=== PATIENT | male | born 2000 | race Caucasian/White ===

== ENCOUNTER 2021-09-16 15:39 | Inpatient (IN) | payer SELFPAY ==
[~2021-09-16] VITALS: Ht 175.3 cm; Wt 66.7 kg
--- NOTE | 2021-09-16 16:05 | NUR ---
BIBMOM C/O WEAKNESS & FATIGUE, ON GOING PROBLEM SINCE MAR, REFUSED TO SEE MED UNTIL TODAY. DENIES ABDOMINAL PAIN, N/V/D AND BLEEDING. PLACED COMFORTABLY IN BED. VITALS CHECKED.
[2021-09-16] MEDS ORDERED: IV NS 0.9% 1,000 ML BAG IV ONE (16:30)
[2021-09-16] MEDS ORDERED: PANTOPRAZOLE 40 MG VIAL IV ONE (16:30)
--- NOTE | 2021-09-16 16:30 | NUR ---
IV CANNULA G18 INSERTED ON RIGHT AC. BLOOD DRAWN AND SENT TO LAB
[2021-09-16] MEDS ORDERED: PANTOPRAZOLE 40 MG VIAL ONE (16:32)
--- NOTE | 2021-09-16 16:37 | NUR ---
MEDICATED PER ERMD ORDER, PT SHERRON WELL. PT TO CT VIA TEDDY.
--- NOTE | 2021-09-16 16:40 | NUR ---
WHEELED PATIENT TO CT DEPT
[2021-09-16 17:16] LABS: CALCIUM, SERUM 8.5 mg/dL (8.5-10.1); CREATININE 0.6 mg/dL (0.6-1.3); POTASSIUM 3.6 mmol/L (3.5-5.1)
[2021-09-16 17:28] LABS: ALBUMIN 3.1 g/dL (3.4-5.0); BILIRUBIN,DIRECT 0.1 mg/dL (0.0-0.2); BILIRUBIN,TOTAL 0.2 mg/dL (0.2-1.0); TOTAL PROTEIN, SERUM 8.2 g/dL (6.4-8.2)
--- NOTE | 2021-09-16 17:46 | NUR ---
BLOOD DRAWN DONE AND SENT TO LAB
--- NOTE | 2021-09-16 18:25 | NUR ---
PATIENT FOR BLOOD TRANSFUSION OF 2 UNITS. 1 UNIT PREPARED TO TRANSFUSE. BLOOD CHECKED AND VERIFIED WITH RN SABINE. VITALS WITHIN NORMAL RANGE. PATIENT AFEBRILE. ATTACHED TO MONITOR. BP 117/78, HR113,T98.3, RR19, SPO2 100%.
--- NOTE | 2021-09-16 18:46 | NUR ---
COVID SWAB DONE AND SENT TO LAB
--- NOTE | 2021-09-16 19:30 | NUR ---
MRSA SWAB COLLECTED AND SENT TO LAB. PATIENT'S BELONGINGS LIST DONE.
--- NOTE | 2021-09-16 20:25 | NUR ---
CALLED CAROL LARES WILL CALL BACK FOR REPORT
--- NOTE | 2021-09-16 20:50 | NUR ---
CALLED CAROL LARES STILL NOT READY TO RECEIVE REPORT
--- NOTE | 2021-09-16 21:06 | NUR ---
REPORT GIVEN TO CAROL ROMERO
--- NOTE | 2021-09-16 21:20 | NUR ---
RN NOTE RECEIVED PATIENT FROM ER, TRANSFERRED TO ROOM 111-1. ADMITTING DX: ACUTE GIB. PATIENT IS ALERT AND ORIENTED X4, ABLE TO MAKE NEEDS KNOWN. VERBALIZED FEAR AND WORRISOME. KEPT PATIENT COMFORTABLE AND ANSWERED PATIENT'S QUESTIONS ACCORDINGLY. ON ROOM AIR, O2 SAT 100%. NO S/S OF ACUTE RESPIRATORY DISTRESS. DENIES ANY PAIN AT THIS TIME. IV ACCESS ON RIGHT AC #18, PATENT AND INTACT. S/P 1 UNIT PRBC. VITAL SIGNS STABLE. DUE FOR ANOTHER UNIT OF PRBC. SKIN ASSESSMENT DONE, SKIN IS INTACT AND CLEAN. SKIN IS PALE. ABLE TO AMBULATE, STANDBY ASSIST. NO S/S OF ANY NAUSEA/VOMITING AT THIS TIME. ORIENTED PATIENT TO ROOM, STAFF, AND USE OF CALL LIGHT. BED LOCKED AND IN LOWEST POSITION. ALL NEEDS ANTICIPATED.
--- NOTE | 2021-09-16 21:32 | NUR ---
PUSHED PATIENT TO ARNAUD. ENDORSED TO HEATHER THAT BLOOD #2 IS READY FOR QA DEVELOPER AT LAB.
[2021-09-16] MEDS ORDERED: ONDANSETRON HCL/PF 4 MG/2 ML VIAL IVP PRN (22:00)
[2021-09-16] MEDS ORDERED: ACETAMINOPHEN 325 MG TABLET PO PRN (22:00)
[2021-09-16] MEDS ORDERED: ZOLPIDEM TARTRATE 5 MG TABLET PO PRN (22:00)
[2021-09-16] MEDS ORDERED: Z GUARD REMEDY 4 OZ OINT TP PRN (22:00)
[2021-09-16 22:05] VITALS: BP 119/73
[2021-09-16] MEDS: IV NS 0.9% 1,000 ML IV PRN (22:14)
[2021-09-16 22:20] VITALS: BP 111/73
[2021-09-16 22:35] VITALS: BP 113/76
[2021-09-16] MEDS: PANTOPRAZOLE 40 MG VIAL IV SCH (22:58)
[2021-09-16 23:35] VITALS: BP 114/74
[2021-09-17] VITALS (13 sets, daily range): BP systolic 111–123; BP diastolic 62–75
--- NOTE | 2021-09-17 00:43 | NUR ---
RN NOTE 2 UNIT PRBC TRANSFUSED AT THIS TIME. NO ADVERSE REACTION NOTED. VITAL SIGNS STABLE.
--- NOTE | 2021-09-17 02:41 | NUR ---
RN NOTE ALANA SOSA MADE AWARE, PATIENT'S REPEAT HGB/HCT - 5.0/16, S/P 2 UNITS PRBC. WITH NEW ORDER TO TRANSFUSE 2 UNITS PRBC. ALSO MADE ALANA SOSA AWARE NO KODY KATZ FOR EMERGENCY BLOOD TRANSFUSION. TEENA CELL FEED DEPARTMENT SUPERVISOR AND THEODORE CELL FEED DEPARTMENT SUPERVISOR AWARE.
--- NOTE | 2021-09-17 03:30 | NUR ---
RN NOTE BEGAN PATIENT'S 3RD UNIT PRBC(EMERGENCY BLOOD TRANSFUSION) AT THIS TIME. UNABLE TO SCAN. VERIFIED MANUALLY WITH TEENA MEDINA. EXPIRATION DATE CHECKED. NO SIGNS OF LEAKAGE, BLOOD CLOTS, OR DISCOLORATION. VITAL SIGNS BP- 113/67, HR 92, RR 20 TEMP- 98.2, O2 SAT 98%
--- NOTE | 2021-09-17 06:56 | NUR ---
RN NOTE 0345- NO ADVERSE REACTION NOTED. BP-102/66, HR 82, RR-18, TEMP 98.8, O2 SAT 99% 0359- PATIENT STABLE. BP-104/63, HR 86, TEMP 98.8, O2 SAT 99%, RR-17 0430- BP 106/62, HR 82, RR-16, TEMP 98.8, O2 SAT 99%. 0530- NO ADVERSE REACTION NOTED. BP 110/68, HR 84, RR-16, TEMP 98.7, O2 SAT 98% 0640- BLOOD TRANSFUSION COMPLETED, NO ADVERSE REACTION NOTED. BP 108/66, HR-80, RR-16, TEMP 98.9, O2 SAT 99% PATIENT RESTING IN BED. CONTINUES ON ROOM AIR, NO S/S OF RESPIRATORY DISTRESS. COMPLETED 2 UNITS PRBC SINCE ADMISSION, TOLERATED WELL. ASSISTED PATIENT TO BATHROOM X1. ALL NEEDS ATTENDED PROMPTLY. WILL ENDORSE TO AM SHIFT.
[2021-09-17 06:57] LABS: BASOPHILS # (AUTO) 0.1 K/uL (0.0-0.2); BASOPHILS % (AUTO) 2.1 % (0.0-2.0); EOSINOPHILS % (AUTO) 6.2 % (0.0-6.0); LYMPHOCYTES # (AUTO) 1.4 K/uL (0.8-4.8); LYMPHOCYTES % (AUTO) 21.9 % (20.0-44.0); MEAN CORPUSCULAR HGB CONC 32 g/dl (31.0-36.0); MEAN CORPUSCULAR VOLUME 69 fL (80-96); MONOCYTES # (AUTO) 1.2 K/uL (0.1-1.30); MONOCYTES % (AUTO) 17.9 % (2.0-12.0); NEUTROPHILS # (AUTO) 3.4 K/uL (1.8-8.9); NEUTROPHILS % (AUTO) 51.9 % (43.0-81.0); PLATELET COUNT (AUTO) 329 K/uL (150-450); RED BLOOD CELL COUNT(AUTO) 2.73 MIL/uL (4.5-6.0); WHITE BLOOD COUNT (AUTO) 6.5 K/uL (4.3-11.0)
[2021-09-17 07:04] LABS: HEMATOCRIT 19 % (39-51); HEMOGLOBIN 5.9 g/dL (13.5-17.5)
[2021-09-17 07:24] LABS: ALBUMIN 2.4 g/dL (3.4-5.0); BILIRUBIN,TOTAL 0.9 mg/dL (0.2-1.0); CALCIUM, SERUM 8.2 mg/dL (8.5-10.1); CREATININE 0.7 mg/dL (0.6-1.3); MAGNESIUM 2.3 mg/dL (1.8-2.4); PHOSPHORUS 4.4 mg/dL (2.5-4.9); TOTAL PROTEIN, SERUM 6.7 g/dL (6.4-8.2)
[2021-09-17 07:34] LABS: POTASSIUM 3.9 mmol/L (3.5-5.1)
--- NOTE | 2021-09-17 08:10 | NUR ---
4TH UNIT OF BLOOD STARED AT THIS TIME, PATENT A/O X4 WITH STABLE VS, AFEBRILE NO SOB/ACUTE DISTRESS NOTED, WILL CONTINUE TO MONITOR CLOSELY.
[2021-09-17 08:49] LABS: EOSINOPHILS % (MANUAL) 7 % (0-4); LYMPHOCYTES % (MANUAL) 26 % (16-48); MONOCYTES % (MANUAL) 13 % (0-11.0); NEUTROPHILS % (MANUAL) 54 (42-76)
[2021-09-17] MEDS: PANTOPRAZOLE 40 MG VIAL IV SCH ×2 (10:17→23:00)
[2021-09-17 12:35] LABS: HEMOGLOBIN 7.9 g/dL (13.5-17.5)
[2021-09-17 13:54] LABS: THYROID STIMULATING HORMONE 3.649 uIU/mL (0.358-3.74)
[2021-09-17] MEDS: IV NS 0.9% 1,000 ML IV PRN (18:05)
[2021-09-17 18:41] LABS: FERRITIN 9 ng/mL (8-388)
--- NOTE | 2021-09-17 18:51 | NUR ---
PATIENT NPO FOR CT CHEST/ABDOMEN/PELVIS WITH CONTRAST AT 1999, WILL BE NPO AFTER MIDNIGHT EXCEPT MEDS, FOR COLONOSCOPY AND EGD TOMORROW, WILL BE PREPARED WITH BRYON, PER DR LEDEZMA TAKE 3/4 OF THE GALON DURING THE NIGHT AND 1/4 IN AM, PATIENT AWARE AND AGREE, CONTINUE IN IVF ORDERED, WILL ENDORSE CONTINUITY OF CARE TO ONCOMING NURSE.
[2021-09-17] MEDS ORDERED: PEG 3350/NA SULF,BICARB,CL/KCL 4,000 ML BOTTLE PO ONE (20:00)
--- NOTE | 2021-09-17 23:27 | NUR ---
ARNAUD/RN AT INITIAL SHIFT ROUND AT 1920, PATIENT WAS IN BED TALKING TO FAMILY MEMBERS. PATIENT WAS AWAKE, ALERT, ORIENTED, NO C/O PAIN, NO DISTRESS NOTED, PLAN OF CARE DISCUSSED RE: COLONOSCOPY IN THE MORNING AND THE BOWEL PREP TONIGHT, PATIENT VERBALISED UNDERSTAND AND AGREEMENT TO THE PLAN OF CARE. NEEDS ATTENDED. WILL MONITOR.
--- NOTE | 2021-09-17 23:30 | NUR ---
ARNAUD/RN BOWEL PREP OF GOLYTELY WAS STARTED AT ABOUT 1999.
[2021-09-18] VITALS (10 sets, daily range): BP systolic 109–130; BP diastolic 61–85
[2021-09-18 06:22] LABS: BASOPHILS # (AUTO) 0.2 K/uL (0.0-0.2); BASOPHILS % (AUTO) 1.8 % (0.0-2.0); HEMATOCRIT 22 % (39-51); LYMPHOCYTES # (AUTO) 1.1 K/uL (0.8-4.8); LYMPHOCYTES % (AUTO) 13.3 % (20.0-44.0); MEAN CORPUSCULAR HGB CONC 32 g/dl (31.0-36.0); MEAN CORPUSCULAR VOLUME 69 fL (80-96); MONOCYTES # (AUTO) 1.8 K/uL (0.1-1.30); MONOCYTES % (AUTO) 20.4 % (2.0-12.0); NEUTROPHILS # (AUTO) 5.2 K/uL (1.8-8.9); NEUTROPHILS % (AUTO) 59.5 % (43.0-81.0); PLATELET COUNT (AUTO) 329 K/uL (150-450); RED BLOOD CELL COUNT(AUTO) 3.18 MIL/uL (4.5-6.0); WHITE BLOOD COUNT (AUTO) 8.7 K/uL (4.3-11.0)
[2021-09-18 07:04] LABS: HEMOGLOBIN 6.9 g/dL (13.5-17.5)
[2021-09-18 07:06] LABS: CALCIUM, SERUM 8.4 mg/dL (8.5-10.1); CREATININE 0.7 mg/dL (0.6-1.3); MAGNESIUM 2.1 mg/dL (1.8-2.4); PHOSPHORUS 3.9 mg/dL (2.5-4.9); POTASSIUM 3.2 mmol/L (3.5-5.1)
[2021-09-18 07:07] LABS: IMMUNOGLOBULIN A, SERUM 5 mg/dL (90-386); IMMUNOGLOBULIN G, SERUM 2011 mg/dL (603-1613); IMMUNOGLOBULIN M, SERUM 198 mg/dL (20-172)
--- NOTE | 2021-09-18 07:34 | NUR ---
ARNAUD/RN HG 6.9, NOTIFIED SYDNEE BENNETT NP, VIA SECURED MESSAGING, NO REPLY. ENDORSED CAROL ARNOLD, DAY SHIFT NURSE.
[2021-09-18 07:45] LABS: C-REACTIVE PROTEIN 0.8 mg/dL (0.0-0.9)
[2021-09-18] MEDS: IV NS 0.9% 1,000 ML IV PRN (07:48)
[2021-09-18] MEDS ORDERED: IV NS 0.9% 250 ML IV ONE (07:50)
[2021-09-18] MEDS ORDERED: IOHEXOL-300 100 ML VIAL IV ONE (07:50)
[2021-09-18] MEDS ORDERED: CT SWABBABLE VALVE TRANS SET 1 EA INFUS.SET MC ONE (07:51)
--- NOTE | 2021-09-18 07:55 | NUR ---
MS RN OPENING NOTE Patient in bed, awake. A/O x 4, able to make needs known. On room air, breathing evenly and unlabored. No SOB or s/s of distress noted. IV access on RAC #18 running NS at 75 ml/hr. NPO except meds for procedure at noon. Safety precautions in place: bed in low, locked position; siderails up x 2; naty light within reach. Will continue to monitor.
[2021-09-18] MEDS: PANTOPRAZOLE 40 MG VIAL IV SCH ×2 (08:54→21:25)
--- NOTE | 2021-09-18 09:00 | NUR ---
RN NOTE Patient's Hgb is 6.9, Ayden Brock NP notified and ordered to transfuse 1 unit of PRBC.
[2021-09-18] MEDS ORDERED: SORBITOL SOLUTION 70% 30 ML SOLUTION MC STA (09:14)
--- NOTE | 2021-09-18 09:50 | NUR ---
RN NOTE Started blood transfusion. Verified by 2 RNs. VS before transfusion as follows: BP 117/64, HR 79, RR 18, Temp 97.7. No signs of hemolytic reactions noted. Will continue to monitor.
[2021-09-18] MEDS ORDERED: SORBITOL SOLUTION 70% 30 ML SOLUTION PO STA ×2 (09:52→10:07)
--- NOTE | 2021-09-18 10:35 | NUR ---
RN NOTE No transfusion reactions noted at this time. VS as follows: BP 118/66, VA 89, RR 19, Temp 98.9. Will continue to monitor.
[2021-09-18 12:07] LABS: *SPE A/G RATIO 0.6 (0.7-1.7); *SPE ALPHA-1-GLOBULIN 0.4 g/dL (0.0-0.4); *SPE ALPHA-2-GLOBULIN 0.9 g/dL (0.4-1.0); *SPE BETA GLOBULIN 1.1 g/dL (0.7-1.3); *SPE M-SPIKE Not Observed g/dL (Not Observed)
[2021-09-18 12:36] LABS: OCCULT BLOOD STOOL POSITIVE (NEGATIVE)
--- NOTE | 2021-09-18 13:50 | NUR ---
RN NOTE Blood transfusion ended, tolerated well. VS as follows: BP 124/70, IL 94, RR 18, Temp 98.3.
[2021-09-18] MEDS ORDERED: POTASSIUM CL. PREMIX PERIPHER. 50 ML IV SCH (14:00)
--- NOTE | 2021-09-18 14:10 | NUR ---
RN NOTE Brought to OR for EGD and colonoscopy.
--- NOTE | 2021-09-18 16:19 | NUR ---
RN NOTE Patient brought back to room 111-1from OR. VS as follows: BP 112/73, IL 85, RR 19, SPO2 100 %, Temp 98.3. Will continue to monitor.
[2021-09-18 16:32] LABS: EOSINOPHILS % (MANUAL) 5 % (0-4); LYMPHOCYTES % (MANUAL) 15 % (16-48); MONOCYTES % (MANUAL) 20 % (0-11.0); NEUTROPHILS % (MANUAL) 60 (42-76)
[2021-09-18] MEDS: POTASSIUM CL. PREMIX PERIPHER. 50 ML IV SCH ×3 (16:50→19:00)
--- NOTE | 2021-09-18 19:05 | NUR ---
RN OPENING NOTES RECEIVED PATIENT ON BED, ALERT AND VERBALLY RESPONSIVE, A/O X 4. ON ROOM AIR. RESPIRATORY EVEN ANG UNLABORED, NO SOB NOTED. AFEBRILE. NO S/S OF DISTRESS NOTED. NOTED WITH RAC SL #18G, INTACT, PATENT. FLUSHED WITH NS, NO INFILTRATION NOTED AT SITE. RUNNING WITH NS 1L @ 75 ML/HR. NO ACTIVE BLEEDING NOTED AT THIS TIME. ALL SAFETY PRECAUTION PROVIDED. BED IN LOWEST POSITION, LOCKED. CALL LIGHT WITH IN REACH.
--- NOTE | 2021-09-18 19:27 | NUR ---
MS RN CLOSING NOTE Patient in bed, awake. A/O x 4, able to make needs known. Stable on room air, breathing evenly and unlabored. No SOB or s/s of distress noted. IV access on RAC #18 running NS at 75 ml/hr. Due meds given. All needs attended to. Safety precautions maintained: bed in low, locked position; siderails up x 2; naty light within reach. Will endorse to assistant shift supervisor nurse for NANDO.
[2021-09-18 20:22] LABS: HEMOGLOBIN 9.1 g/dL (13.5-17.5)
--- NOTE | 2021-09-18 20:45 | NUR ---
RN NOTES H AND H RESULT CAME IN, 9.1 AND 28, PATIENT NO ACTIVE BLEEDING NOTED. CONTINUE TO MONITOR. CHARGE NURSE MADE AWARE.
--- NOTE | 2021-09-18 23:00 | NUR ---
RN NOTES PATIENT NOTED WITH TEMP- 99.8 FAHRENHEIT, COOLING MEASURE PROVIDED, ACETAMINOPHEN GIVEN PER MD'S ORDER. CONTINUE TO MONITOR.
--- NOTE | 2021-09-18 23:30 | NUR ---
RN NOTES TEMPERATURE RECHECKED AND OBTAINED 99.3 FAHRENHEIT, CONTINUE WITH COOLING MEASURE. CONTINUE TO MONITOR
--- NOTE | 2021-09-19 00:30 | NUR ---
RN NOTES VANCOCIN ORAL SOLUTION 125mg, NOT AVAILABLE. NOTIFIED JOB SITE SUPERINTENDENT SYDNEE Craft, PER SYDNEE ITS OK TO START THE MEDICATION IN MORNING.
[2021-09-19 04:00] VITALS: BP 120/56
[2021-09-19] MEDS: IV NS 0.9% 1,000 ML IV PRN ×2 (05:02→18:44)
[2021-09-19 06:17] LABS: BASOPHILS # (AUTO) 0.1 K/uL (0.0-0.2); BASOPHILS % (AUTO) 1.7 % (0.0-2.0); EOSINOPHILS % (AUTO) 2.6 % (0.0-6.0); HEMATOCRIT 26 % (39-51); HEMOGLOBIN 8.6 g/dL (13.5-17.5); LYMPHOCYTES # (AUTO) 1.1 K/uL (0.8-4.8); LYMPHOCYTES % (AUTO) 16.4 % (20.0-44.0); MEAN CORPUSCULAR HGB CONC 33 g/dl (31.0-36.0); MEAN CORPUSCULAR VOLUME 73 fL (80-96); MONOCYTES # (AUTO) 1.3 K/uL (0.1-1.30); MONOCYTES % (AUTO) 19.6 % (2.0-12.0); NEUTROPHILS # (AUTO) 4.1 K/uL (1.8-8.9); NEUTROPHILS % (AUTO) 59.7 % (43.0-81.0); PLATELET COUNT (AUTO) 304 K/uL (150-450); RED BLOOD CELL COUNT(AUTO) 3.59 MIL/uL (4.5-6.0); WHITE BLOOD COUNT (AUTO) 6.9 K/uL (4.3-11.0)
[2021-09-19 06:23] LABS: CALCIUM, SERUM 8.2 mg/dL (8.5-10.1); CREATININE 0.8 mg/dL (0.6-1.3); PHOSPHORUS 4.8 mg/dL (2.5-4.9); POTASSIUM 3.4 mmol/L (3.5-5.1)
--- NOTE | 2021-09-19 07:19 | NUR ---
RN NOTES PATIENT REMAIN STABLE THROUGH OUT THE SHIFT. RESPIRATORY EVEN ANG UNLABORED, NO SOB NOTED. AFEBRILE. NO S/S OF DISTRESS NOTED. RUNNING WITH NS 1L @ 75 ML/HR. RECTAL BLEEDING, NO ACTIVE BLEEDING NOTED AT THIS TIME. ALL DUE MEDS GIVEN ORDERED. ALL SAFETY PRECAUTION PROVIDED. BED IN LOWEST POSITION, LOCKED. CALL LIGHT WITH IN REACH.
[2021-09-19] MEDS: VANCOMYCIN HCL 125 MG/2.5 ML ORAL.SUSP PO SCH ×5 (07:30→23:43)
--- NOTE | 2021-09-19 07:52 | NUR ---
RN OPENING NOTE PATIENT IN BED RESTING, AWAKE. A/O X 4. NO S/S OF PAIN NOTED AT THIS TIME. ON ROOM AIR, NO DISTRESS OR SHORTNESS OF BREATH NOTED. IV ACCESS RAC #18G INTACT, PATENT AND FLUSHING WELL. FALL AND SAFETY MEASURES IN PLACE, BED ALARM ON, BED IN LOW AND LOCK POSITION, CALL LIGHT AND TABLE WITHIN EASY REACH, SIDE RAILS UP X2. WILL CONTINUE TO MONITOR.
[2021-09-19 08:00] VITALS: BP 119/59
[2021-09-19] MEDS: PANTOPRAZOLE 40 MG VIAL IV SCH ×2 (08:24→21:10)
[2021-09-19] MEDS ORDERED: POTASSIUM CHLORIDE 20 MEQ TAB.PRT.SR PO SCH (10:00)
[2021-09-19 12:00] VITALS: BP 119/59
[2021-09-19 16:27] VITALS: BP 117/74
--- NOTE | 2021-09-19 18:31 | NUR ---
RN CLOSING NOTE PATIENT IN BED RESTING, AWAKE. A/O X 4. NO S/S OF PAIN NOTED AT THIS TIME. ON ROOM AIR, NO DISTRESS OR SHORTNESS OF BREATH NOTED. IV ACCESS RAC #18G - NS @ 75ML/HR, INTACT, PATENT AND FLUSHING WELL. ALL SCHEDULE MEDICATIONS ADMINISTERED. FALL AND SAFETY MEASURES IN PLACE, BED ALARM ON, BED IN LOW AND LOCK POSITION, CALL LIGHT AND TABLE WITHIN EASY REACH, SIDE RAILS UP X2. WILL ENDORSE TO PARACHUTE HARNESS RIGGER.
[2021-09-19 20:00] VITALS: BP 116/67
--- NOTE | 2021-09-19 20:00 | NUR ---
RN NOTE RECEIVED PT AWAKE, WITH FAMILY AT BEDSIDE. PT DENIES ANY PAIN, NO SOB NOTED. PT AMBULATORY. PT WITH LOOSE BOWEL, NO BLOOD PER PT. IV ON RAC PATENT AND INTACT, NS RUNNING AT 75ML/HR. WILL CONTINUE TO MONITOR.
[2021-09-20 04:00] VITALS: BP 110/66
[2021-09-20] MEDS: VANCOMYCIN HCL 125 MG/2.5 ML ORAL.SUSP PO SCH ×2 (05:57→11:56)
[2021-09-20 07:05] LABS: BASOPHILS # (AUTO) 0.1 K/uL (0.0-0.2); BASOPHILS % (AUTO) 1.2 % (0.0-2.0); EOSINOPHILS % (AUTO) 6.9 % (0.0-6.0); HEMATOCRIT 29 % (39-51); HEMOGLOBIN 9.2 g/dL (13.5-17.5); LYMPHOCYTES # (AUTO) 1.4 K/uL (0.8-4.8); LYMPHOCYTES % (AUTO) 23.4 % (20.0-44.0); MEAN CORPUSCULAR HGB CONC 32 g/dl (31.0-36.0); MEAN CORPUSCULAR VOLUME 73 fL (80-96); MONOCYTES # (AUTO) 0.9 K/uL (0.1-1.30); MONOCYTES % (AUTO) 15.9 % (2.0-12.0); NEUTROPHILS # (AUTO) 3.1 K/uL (1.8-8.9); NEUTROPHILS % (AUTO) 52.6 % (43.0-81.0); PLATELET COUNT (AUTO) 300 K/uL (150-450); RED BLOOD CELL COUNT(AUTO) 3.91 MIL/uL (4.5-6.0); WHITE BLOOD COUNT (AUTO) 5.9 K/uL (4.3-11.0)
--- NOTE | 2021-09-20 07:10 | NUR ---
RN NOTES RECEIVED PT ON BED ,A/x4, ON RA, NO DISTESS NOTED, IVF AT 75CC/HR RUNNING ,SR UP X3, CALL LIGHT WITHIN EASY REACH BED LOCKED AND IN LOWEST POSITON, CONTINUE TO MONITOR.
[2021-09-20 07:27] LABS: CALCIUM, SERUM 7.9 mg/dL (8.5-10.1); CREATININE 0.6 mg/dL (0.6-1.3); MAGNESIUM 1.9 mg/dL (1.8-2.4); PHOSPHORUS 4.2 mg/dL (2.5-4.9); POTASSIUM 3.6 mmol/L (3.5-5.1)
--- NOTE | 2021-09-20 07:27 | NUR ---
RN NOTE NO SIGNIFICANT CHANGES NOTED. REMAIN AFEBRILE. CONTINUE ON IVFLUIDS. NEW IV LINE ON LHAND. PATENT AND INTACT. DENIES ANY PAIN.
[2021-09-20 08:00] VITALS: BP 122/76
[2021-09-20 08:07] LABS: *ANA ANTI-CENTROMERE B AB <0.2 AI (0.0-0.9); *ANA ANTI-DNA(DS) AB, QN <1 IU/mL (0-9); *ANA ANTI-JO-1 <0.2 AI (0.0-0.9); *ANA ANTICHROMATIN ANTIBODY <0.2 AI (0.0-0.9); *ANA RNP ANTIBODIES <0.2 AI (0.0-0.9); *ANA SJOGREN'S ANTI-SS-A <0.2 AI (0.0-0.9); *ANA SJOGREN'S ANTI-SS-B <0.2 AI (0.0-0.9); *ANAANTI-SCLERODERMA-70 AB <0.2 AI (0.0-0.9); *ANASMITH AB <0.2 AI (0.0-0.9)
[2021-09-20] MEDS: PANTOPRAZOLE 40 MG VIAL IV SCH (08:13)
--- NOTE | 2021-09-20 12:00 | NUR ---
RN NOTES PT STABLE , NO DISTESS NOTED, CONTINUE TO MONITOR
[2021-09-20] MEDS: IV NS 0.9% 1,000 ML IV PRN (12:33)
[2021-09-20] MEDS ORDERED: AZITHROMYCIN 250 MG TABLET PO ONE ×2 (13:00→14:00)
[2021-09-20] MEDS ORDERED: METRONIDAZOLE 500 MG TABLET PO SCH (13:00)
[2021-09-20] MEDS ORDERED: LEVO500T90 PO (14:47)
[2021-09-20] MEDS ORDERED: METR500T PO (14:47)
[2021-09-20] MEDS ORDERED: LEVOFLOXACIN (250MG) 250 MG TABLET PO SCH (15:00)
[2021-09-20 16:00] VITALS: BP 120/68
--- NOTE | 2021-09-20 16:40 | NUR ---
RN NOTES DISCHARGE INSTRUCTION GIVEN , PT VERBALIZES UNDERSTANDING , IV SITE D/VICKY , PT LEFT THE FLOOR AMBULATORY TO MAIN ENTRANCE ACCOMPANIED BY FAMILY MEMBER AND STAFF MEMBER IN STABLE CONDITION .
[2021-09-20 17:05] LABS: FERRITIN 16 ng/mL (8-388)
[2021-09-20 17:44] LABS: IRON, SERUM 12 ug/dl (50-175); TOTAL IRON BINDING CAPACITY 360 ug/dl (250-450)
[2021-09-23 13:06] LABS: *ANCANTIMYELOPEROXIDASE (MPO) <9.0 U/mL (0.0-9.0); *ANCANTIPROTEINASE 3 (PR-3) AB 18.8 U/mL (0.0-3.5)
[2021-09-24 13:07] LABS: *ANCA CYTOPLASMIC (C-ANCA) <1:20 titer (Neg:<1:20); *ANCA PERINUCLEAR (P-ANCA) <1:20 titer (Neg:<1:20)
== END 2021-09-20 16:37 | disposition home or self-care (01) | DRG 385 ==
LOC: ER 15:41 → TRANSITION 18:59 → TELE1 20:01 → MEDSG1 09-18 07:05
PROVIDERS: ADMIT Nurse Practitioner Acute Care; ATTEND Nurse Practitioner Family
PROC: 30233N1 Transfusion of Nonautologous Red Blood Cells into Peripheral Vein, Percutaneous Approach (ICD-10-PCS; principal; 2021-09-16)
PROC: 0DBG8ZX Excision of Left Large Intestine, Via Natural or Artificial Opening Endoscopic, Diagnostic (ICD-10-PCS; 2021-09-18)
PROC: 0DBF8ZX Excision of Right Large Intestine, Via Natural or Artificial Opening Endoscopic, Diagnostic (ICD-10-PCS; 2021-09-18)
PROC: 0DB98ZX Excision of Duodenum, Via Natural or Artificial Opening Endoscopic, Diagnostic (ICD-10-PCS; 2021-09-18)
PROC: 0DB68ZX Excision of Stomach, Via Natural or Artificial Opening Endoscopic, Diagnostic (ICD-10-PCS; 2021-09-18)
DX: K51.011 Ulcerative (chronic) pancolitis with rectal bleeding (principal); J18.9 Pneumonia, unspecified organism; E87.1 Hypo-osmolality and hyponatremia; D62 Acute posthemorrhagic anemia; R64 Cachexia; Z20.822 Contact with and (suspected) exposure to COVID-19; K29.70 Gastritis, unspecified, without bleeding; R59.0 Localized enlarged lymph nodes; D72.821 Monocytosis (symptomatic); D50.9 Iron deficiency anemia, unspecified; E88.09 Other disorders of plasma-protein metabolism, not elsewhere classified; R91.8 Other nonspecific abnormal finding of lung field; R16.1 Splenomegaly, not elsewhere classified
CPT/HCPCS: 36415; 71045-TC; 71260-TC; 80048-TC; 80053-TC; 80076-TC; 82164; 82272-TC; 82378; 82607-TC; 82728-TC; 82784; 82962-TC; 83520; 83540-TC; 83615-TC; 83690-TC; 83735-TC; 84100-TC; 84155; 84165; 84443-TC; 85025-TC; 85027-TC; 85730-TC; 86140-TC; 86225; 86235; 86256; 86334; 86480; 86706; 86803; 86850-TC; 87045-TC; 87081-TC; 87340; 87806; C9113; G0378; J2704; J3480; J3490; J7030; J7040; J7050; P9016; Q9967